=== PATIENT | male | born 1955 | race Caucasian/White ===

== ENCOUNTER 2018-09-29 10:39 | Outpatient (CLI) | payer OTHER | END 2018-09-29 10:40 | disposition critical access hospital (66) | LOC: EMS 10:39 | PROVIDERS: ATTEND Surgery | DX: M79.621 Pain in right upper arm (principal); V43.52XA Car driver injured in collision with other type car in traffic accident, initial encounter; Y92.413 State road as the place of occurrence of the external cause | CPT/HCPCS: A0425; A0429 ==

== ENCOUNTER 2018-09-29 11:12 | Emergency (ER) | payer OTHER ==
[2018-09-29 11:18] VITALS: BP 145/86
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
== END 2018-09-29 12:55 | disposition home or self-care (01) ==
LOC: EDUNIT# → ED 11:12
DX: S42.201A Unspecified fracture of upper end of right humerus, initial encounter for closed fracture (principal); V49.9XXA Car occupant (driver) (passenger) injured in unspecified traffic accident, initial encounter
CPT/HCPCS: 99283